=== PATIENT | male | born 1975 | race Caucasian/White ===

== ENCOUNTER 2019-01-27 10:50 | Emergency (ER) | payer BC ==
[2019-01-27] MEDS ORDERED: Cyclobenzaprine 10 MG Tab PO ONE (11:49)
--- NOTE | 2019-01-27 12:00 | EDM.PDOC ---
ED HPI GENERAL MEDICAL PROBLEM - General Chief Complaint: Back Pain or Injury Stated Complaint: BACK HURTS Time Seen by Provider: 01/27/19 11:25 Source of Information: Reports: Patient, Family () History Limitations: Reports: No Limitations - History of Present Illness INITIAL COMMENTS - FREE TEXT/NARRATIVE: Alert pleasant 43 yo male present to ER with due to symptoms of severe right mid/lower back pain. Patient noticed pain yesterday but not severe. Patient and drove north to [place] this weekend. Patient slept on an RV mattress with significant increased pain over night and this am. Patient has had difficulty moving due to pain. Patient has minimal pain at rest with increased pain with initiation of movement. Patient took Ibuprofen 800mg this am with improvement of pain. Patient has a history of mild back aches in the past but nothing severe or consistent. Patient's pain is better with less movement. [place] seemed to loose up back. Patient denies any Bowel of Bladder symptoms and pain dose not radiate down leg or around abdomen. Patient is otherwise health without any additional systemic symptoms or concerns. - Related Data Allergies Allergy/AdvReac Type Severity Reaction Status Date / Time No Known Allergies Allergy Verified 01/27/19 11:16 Home Meds: Home Meds Cyclobenzaprine [Flexeril] 5 - 10 mg PO TID PRN 5 Days #15 tab 01/27/19 [Rx] Naproxen [Naprosyn] 500 mg PO Q8HR PRN 20 Days #40 tablet 01/27/19 [Rx] Omeprazole 20 mg PO BID 30 Days #60 tablet. 01/27/19 [Rx] Past Medical History - Past Health History Medical/Surgical History: Denies Medical/Surgical History Social & Family History - Tobacco Use Smoking Status *Q: Never Smoker ED ROS GENERAL - Review of Systems Review Of Systems: ROS reveals no pertinent complaints other than HPI. ED EXAM,LOWER BACK PAIN/INJURY - Physical Exam Exam: See Below Exam Limited By: No Limitations General Appearance: Alert, WD/WN, Moderate Distress (with movement ) Eye Exam: Bilateral Eye: EOMI, PERRL Ears: Normal External Exam, Hearing Grossly Normal Nose: Normal Inspection Throat/Mouth: Normal Inspection, Normal Lips, Normal Voice, No Airway Compromise Head: Atraumatic Neck: Normal Inspection, Supple, Non-Tender, Full Range of Motion Respiratory/Chest: No Respiratory Distress, Normal Breath Sounds, No Accessory Muscle Use Cardiovascular: Normal Peripheral Pulses, No Edema GI/Abdominal: Soft, Non-Tender, No Distention Back Exam: Normal Inspection, Decreased Range of Motion, Muscle Spasm (right latissimus lateral lower back pain to palpation). No: CVA Tenderness (R), CVA Tenderness (L), Paraspinal Tenderness, Vertebral Tenderness Extremities: Normal Inspection, Normal Range of Motion, Non-Tender, No Pedal Edema, Normal Capillary Refill Neurological: Alert, Normal Mood/Affect, Normal Dorsiflexion, CN II-XII Intact, Normal Plantar Flexion, Normal Gait (guarded) Psychiatric: Normal Affect, Normal Mood Skin Exam: Warm, Dry, Intact, Normal Color, No Rash Course - Vital Signs Last Recorded V/S: Last Vital Signs Temp 36.4 C 01/27/19 11:24 Pulse 80 01/27/19 11:24 Resp 16 01/27/19 11:24 BP 147/89 H 01/27/19 11:24 Pulse Ox 98 01/27/19 11:24 - Orders/Labs/Meds Orders: Active Orders 24 hr Category Date Time Status Cooling Warming Measures [RC] ASDIRECTED Care 01/27/19 11:49 Active Ice Pack [Ice Therapy] [OM.PC] Routine Oth 01/27/19 11:49 Ordered Meds: Medications Discontinued Medications Generic Name Dose Route Start Last Admin Trade Name Freq PRN Reason Stop Dose Admin Cyclobenzaprine HCl 10 mg 01/27/19 11:49 01/27/19 11:56 Flexeril PO 01/27/19 11:50 10 mg ONETIME ONE Administration - Re-Assessments/Exams Free Text/Narrative Re-Assessment/Exam: MDM: Patient back pain symptoms were discussed at length. Pain has not lasted > 6 weeks. Patient denies saddle anesthesia, motor/sensory deficit, difficulty initiating urination, incontinence of bowel or bladder, unexplained weight loss , personal history of cancer, chronic steroid use or immunosuppression, IV drug use, or significant trauma. Patient denies fever and noted afebrile during visit. No recent bacterial infection. No night pain or pain that is worse when supine. No new or focal neurological deficits at time of ER visit. I reevaluated the patient and discussed the results of the above workup. I discussed follow up instructions and signs and symptoms that should prompt return to the emergency department. The patient expressed understanding and the patient was discharged. Encouraged close follow up with PCP. Return to an ER if symptoms worsen or new symptoms develop. Patient/Family/Friend voiced understanding and agreed to treatment plan. 01/27/19 11:45 Departure - Departure Time of Disposition: 12:05 Disposition: Home, Self-Care 01 Condition: Good Clinical Impression: Lumbar spine strain, Acute lumbar myofascial strain, Elevated blood pressure reading - Discharge Information Prescriptions: Naproxen [Naprosyn] 500 mg PO Q8HR PRN 20 Days #40 tablet PRN Reason: Inflammation Cyclobenzaprine [Flexeril] 5 - 10 mg PO TID PRN 5 Days #15 tab PRN Reason: Muscle Spasm Omeprazole 20 mg PO BID 30 Days #60 tablet.dr Instructions: Mid-Back Strain, Low Back Sprain, Back Injury Prevention, Easy-to -Read, How to Take Your Blood Pressure, Hypertension, Mid-Back Strain Rehab- SportsMed, Low Back Strain Rehab-SportsMed Referrals: PCP,None [Primary Care Provider] - 2 Weeks (if not improving, sooner if numbess or weakness in legs ) Forms: ED Department Discharge Additional Instructions: 1. DECREASED PHYSICAL ACTIVITY X 3-5 DAYS PER COMFORT. 2. IBUPROFEN 600-800mg or NAPROXEN 500mg (with food) WITH FOOD FOR INFLAMMATION, PAIN AND SWELLING. 3. FLEXERIL 5-10 mg every 6-8HR PRN MUSCLE SPASMS AND PAIN> (TAKE AT NIGHT). Do not mix with Alcohol. 4. ICE 15-20min TO AFFECTED AREAS 3-4 TIMES PER DAY x 3 days then MAY ALTERNATE WITH HEAT AFTER 48 HOURS. 5. SYMPTOMS SHOULD IMPROVE GRADUALLY EACH DAY. IF NOT IMPROVING IN 2 WEEKS CONSIDER REPEAT EVALUATION and PT REFERRAL. ELEVATED BLOOD PRESSURE Take your blood pressure and pulse 1-2 times at various times daily for the next two weeks. Take your readings to your primary care provider to discuss treatment options for elevated blood pressure. THE DISCHARGE INSTRUCTIONS ARE INTENDED A COMPLEMENT TO AND NOT A REPLACEMENT FOR THE VERBAL INSTRUCTIONS THAT I HAVE PROVIDED YOU TODAY. AFTER GOING OVER THE PLAN OF CARE AND PROVIDING YOU WITH THE VERBAL INSTRUCTIONS. YOU HAVE HAD THE OPPORTUNITY TO ASK FURTHER QUESTIONS AND TO CLARIFY UNCERTAINTIES. THANK YOU FOR ALLOWING US TO ASSIST WITH YOUR MEDICAL CONCERNS AND NEEDS. - Problem List & Annotations (1) Acute lumbar myofascial strain SNOMED Code(s): 163518241, 63631049, 748549044 Code(s): S39.012A - STRAIN OF MUSCLE, FASCIA AND TENDON OF LOWER BACK, INIT Status: Acute Current Visit: Yes (2) Lumbar spine strain SNOMED Code(s): 595199969 Code(s): S39.012A - STRAIN OF MUSCLE, FASCIA AND TENDON OF LOWER BACK, INIT Status: Acute Current Visit: Yes - My Orders Last 24 Hours: My Active Orders 01/27/19 11:49 Cooling Warming Measures [RC] ASDIRECTED Ice Pack [Ice Therapy] [OM.PC] Routine - Assessment/Plan Last 24 Hours: My Active Orders 01/27/19 11:49 Cooling Warming Measures [RC] ASDIRECTED Ice Pack [Ice Therapy] [OM.PC] Routine
== END 2019-01-27 12:20 | disposition home or self-care (01) ==
LOC: JP.ED 10:50
DX: S39.012A Strain of muscle, fascia and tendon of lower back, initial encounter (principal); R03.0 Elevated blood-pressure reading, without diagnosis of hypertension; Z79.899 Other long term (current) drug therapy; X58.XXXA Exposure to other specified factors, initial encounter
CPT/HCPCS: 99283; A9270